=== PATIENT | female | born 1990 | race Caucasian/White ===

== ENCOUNTER → 2016-11-14 | Outpatient (REF) | payer OTHER | LOC: M LAB REF 10:30 | PROVIDERS: ATTEND Obstetrics & Gynecology | DX: Z12.4 Encounter for screening for malignant neoplasm of cervix (principal) ==

== ENCOUNTER → 2017-03-15 | Outpatient (CLI) | payer OTHER ==
--- NOTE | 2017-03-15 11:23 | REP ---
Clinical: Anatomical evaluation. Comparison: None . Findings: Examination demonstrates a single live intrauterine in cephalic presentation. motion is identified by technologist. Placenta is noted posteriorly and grade zero without evidence for placenta previa or abruption. Amniotic fluid volume is normal. Cervix measures 3.7 cm in length and appears closed. No evidence for nuchal cord. Gestational age by LMP 18 weeks 4 days with LUBA 08/12/2017 . Gestational age by current measurements 18 weeks 1 day with LUBA 08/15/2017 . FHR equals 149 beats per minute. BPD 4.0 cm 18 weeks 1 day HC 14.8 cm 17-week 6 days AC 12.5 cm 18 weeks 1 day FL 2.8 cm 18 weeks 4 days HL 2.6 cm 18 weeks 2 days HC/AC ratio 1.18 Estimated weight 233 grams ( 35th percentile). Anatomical assessment demonstrates normal structures including cranium, choroid plexus, cavum, cerebellum/posterior fossa, facial features, lungs, four-chamber heart/ventricular outflow tracts, diaphragm, stomach, cord insertion/three-vessel cord, kidneys/bladder, spine, and extremities. Impression: Single live intrauterine in cephalic presentation demonstrating appropriate interval growth. Anatomical assessment is complete and normal. No gross abnormalities are identified. Signed by Beck Monreal MD 03/15/2017 11:14 A
== END ==
LOC: M RAD 09:25
PROVIDERS: ATTEND Specialist
DX: Z34.82 Encounter for supervision of other normal pregnancy, second trimester (principal)

== ENCOUNTER → 2017-07-12 | Outpatient (REF) | payer OTHER | LOC: M LAB REF 17:12 | DX: Z34.83 Encounter for supervision of other normal pregnancy, third trimester (principal) ==

== ENCOUNTER 2017-08-05 16:46 | Inpatient (IN) | payer OTHER ==
[2017-08-05] MEDS: LR 1,000 ML IV (18:23)
[2017-08-05] MEDS: LACTATED RINGER'S 1000 ML IV (19:11)
[2017-08-05 19:28] LABS: HEMATOCRIT 36.9 % (36.0-47.0); HEMOGLOBIN 13.1 g/dl (12.0-15.5); MEAN CORPUSCULAR HEMOGLOBIN 33.1 pg (27.0-33.0); MEAN CORPUSCULAR HGB CONC 35.5 g/dl (32.0-36.5); MEAN CORPUSCULAR VOLUME 93.2 fl (80.0-96.0); PLATELET COUNT, AUTOMATED 241 10^3/uL (150-450); RED BLOOD COUNT 3.96 10^6/uL (4.00-5.40); RED CELL DISTRIBUTION WIDTH 11.9 % (11.5-14.5); WHITE BLOOD COUNT 14.7 10^3/uL (4.0-10.0)
[2017-08-05] MEDS: OXYTOCIN DRIP 30 UNITS in APPROPRIATE DILUENT 1 EA IV (19:58)
[2017-08-05] MEDS ORDERED: FENTANYL 2MCG/ML ROPIVACAINE 0.2% IN 0.9% NACL 200ML IVBAG As Ordered (21:06)
[2017-08-05] MEDS ORDERED: EPIDURAL/PCA KEYS XX (22:30)
[2017-08-05] MEDS ORDERED: REFRIGERATOR IV KEYS XX (22:30)
[2017-08-05] MEDS ORDERED: ONDANSETRON 4MG/2ML VIAL (J2405) IV (22:30)
[2017-08-05] MEDS ORDERED: EPIDURAL COMMENT XX (22:30)
[2017-08-05] MEDS ORDERED: diphenhydrAMINE INJ 50MG/ML VIAL (J1200) IV (22:30)
[2017-08-05] MEDS ORDERED: LACTATED RINGER'S 1000 ML IV (22:30)
[2017-08-05] MEDS ORDERED: FENTANYL/ROPIVACAINE/NACL BAG 200 ML EPIDURAL (22:30)
[2017-08-05] MEDS ORDERED: NALOXONE INJ 0.4 MG/1 ML VIAL (J2310) IV (22:30)
[2017-08-06] MEDS: ePHEDrine SULFATE 25 MG/5 ML(5MG/ML) SYRINGE IV (01:13)
[2017-08-06] MEDS: OXYTOCIN DRIP 30 UNITS in APPROPRIATE DILUENT 1 EA IV (07:36)
[2017-08-06] MEDS ORDERED: LR 1,000 ML IV (07:36)
[2017-08-06] MEDS ORDERED: ONDANSETRON 4MG/2ML VIAL (J2405) IV (07:45)
[2017-08-06] MEDS ORDERED: PROMETHAZINE 25 MG TAB PO (07:45)
[2017-08-06] MEDS ORDERED: DIBUCAINE 1% OINTMENT 30GM TOP (07:45)
[2017-08-06] MEDS: PRENATAL VITAMINS CHEWABLE TABLET PO (08:45)
[2017-08-06] MEDS: IBUPROFEN 800 MG TAB PO ×2 (08:45→16:57)
[2017-08-06] MEDS: DOCUSATE SODIUM 100 MG CAP PO (20:58)
[2017-08-06] MEDS: ACETAMINOPHEN 500 MG TAB PO (20:59)
[2017-08-07] MEDS: IBUPROFEN 800 MG TAB PO ×3 (04:53→22:27)
[2017-08-07] MEDS: PRENATAL VITAMINS CHEWABLE TABLET PO (09:13)
[2017-08-07] MEDS: RHOGAM 300 MCG (1500 IU) INJ (J2790) IM (19:03)
[2017-08-07] MEDS: MEASLES,MUMPS,RUBELLA VACCINE INJ (MMR-II) (90707) SC (19:03)
[2017-08-08] MEDS: PRENATAL VITAMINS CHEWABLE TABLET PO (08:10)
[2017-08-08] MEDS: IBUPROFEN 800 MG TAB PO (08:10)
== END 2017-08-08 14:00 | disposition home or self-care (01) | DRG 775 ==
LOC: M LDO 16:46 → M OBS 08-06 10:15 → M LDI 18:26
PROVIDERS: Obstetrics & Gynecology
PROC: 10E0XZZ Delivery of Products of Conception, External Approach (ICD-10-PCS; principal; 2017-08-06)
DX: O70.0 First degree perineal laceration during delivery (principal); Z37.0 Single live birth; Z3A.39 39 weeks gestation of pregnancy

== ENCOUNTER → 2019-01-29 | Outpatient (CLI) | payer OTHER ==
[~2019-01-29] MED LIST: IBUP-1114 PO; MAPA500T2 PO; PRENTAB9 PO; ZANT150T40 PO
[2019-01-29 17:55] LABS: BASO # 0.1 10^3/uL (0.0-0.2); BASO % 0.5 % (0.0-1.0); EOS # 0.1 10^3/uL (0.0-0.5); EOS % 1.4 % (0.0-3.0); HEMATOCRIT 36.4 % (36.0-47.0); HEMOGLOBIN 12.7 g/dl (12.0-15.5); LYMPH # 2.4 10^3/uL (1.5-5.0); LYMPH % 24.6 % (24.0-44.0); MEAN CORPUSCULAR HEMOGLOBIN 33.2 pg (27.0-33.0); MEAN CORPUSCULAR HGB CONC 34.9 g/dl (32.0-36.5); MEAN CORPUSCULAR VOLUME 95.3 fl (80.0-96.0); MONO # 0.7 10^3/uL (0.0-0.8); MONO % 6.7 % (0.0-5.0); NEUTROPHILS # 6.4 10^3/uL (1.5-8.5); NEUTROPHILS % 66.4 % (36.0-66.0); PLATELET COUNT, AUTOMATED 239 10^3/uL (150-450); RED BLOOD COUNT 3.82 10^6/uL (4.00-5.40); WHITE BLOOD COUNT 9.7 10^3/uL (4.0-10.0)
[2019-01-29 20:31] LABS: CHLAMYDIA DNA AMPLIFICATION NEGATIVE (NEGATIVE); GC DNA AMPLIFICATION NEGATIVE (NEGATIVE)
[2019-01-30 09:08] LABS: HEPATITIS C VIRUS ABY INDEX 0.1 INDEX (<0.8); HIV 1&2 SCREEN CENTAUR NEGATIVE (NEGATIVE); RUBELLA IgG QUALITATIVE IMMUNE (IMMUNE)
== END ==
LOC: M SMT 14:33
PROVIDERS: ATTEND Obstetrics & Gynecology
DX: Z34.81 Encounter for supervision of other normal pregnancy, first trimester (principal); Z3A.00 Weeks of gestation of pregnancy not specified

== ENCOUNTER → 2019-04-09 | Outpatient (CLI) | payer OTHER ==
--- NOTE | 2019-04-09 12:30 | REP ---
OBSTETRIC SONOGRAPHY: HISTORY: Supervision of for anatomy. FINDINGS: Scanning through the gravid uterus demonstrates a viable single intrauterine gestation in a transverse head to the maternal left lie. motion is observed and heart rate is recorded at 137 beats per minute. A posterior grade 0 placenta is seen without evidence of previa or abruption. Amniotic fluid is subjectively normal. Closed cervical length is 4.5 cm. No extrauterine abnormality is observed. No anomaly is seen. The ventricular cardiac outflow tract views and the spine are less than optimally seen due to position. The following additional anatomic structures are identified today and felt to be unremarkable: cranium, choroid plexus, cavum, cerebellum posterior fossa, face and profile, lungs, four-chamber heart, diaphragm, left-sided stomach, abdominal wall cord insertion, three-vessel umbilical cord, kidneys and bladder, spine, upper and lower extremities. Biometry Chart: BPD 4.0 cm = 18 weeks 1 day HC 14.5 cm = 17 weeks 5 days AC 12.5 cm = 18 weeks 1 day FL 2.7 cm = 18 weeks 2 days HL 2.6 cm = 18 weeks 0 days HC/AC ratio normal 1.16. Cephalic index normal 0.78. Estimated weight 225 grams, 0 pounds 7 ounces, 36 percentile for 18 weeks 3 days. IMPRESSION: Viable single intrauterine gestation at 18 weeks 0 days by today's composite sonographic criteria. LUBA by today's sonography September 10, 2019. Transverse lie. cardiac outflow tract views and spine visualization are less than optimal due to position. Electronically Signed by John Beard MD 04/09/2019 03:30 P
== END ==
LOC: M RAD 09:22
PROVIDERS: ATTEND Obstetrics & Gynecology
DX: Z34.90 Encounter for supervision of normal pregnancy, unspecified, unspecified trimester (principal); Z3A.18 18 weeks gestation of pregnancy

== ENCOUNTER → 2019-05-13 | Outpatient (CLI) | payer BC ==
--- NOTE | 2019-05-14 01:54 | REP ---
Clinical: Anatomical evaluation. Comparison: 04/09/2019 . Findings: Examination demonstrates a single live intrauterine in breech presentation. motion is identified by technologist. Placenta is noted posterior and grade air I without evidence for placenta previa or abruption. Amniotic fluid volume is normal. Cervix measures 3.6 cm in length and appears closed. No evidence for nuchal cord. Gestational age by LMP 23 weeks 2 days with LUBA 09/07/2019 . Gestational age by current measurements 22 weeks 2 days with LUBA 09/14/2019 . Estimated weight 572 grams ( 43rd percentile). Anatomical assessment demonstrates normal structures including four-chamber heart/ventricular outflow tracts and spine. Impression: single live intrauterine in breech presentation demonstrating appropriate interval growth. In conjunction with prior examination anatomical assessment is complete and normal.
== END ==
LOC: M WHC 14:01
PROVIDERS: ATTEND Obstetrics & Gynecology
DX: Z34.90 Encounter for supervision of normal pregnancy, unspecified, unspecified trimester (principal); Z3A.23 23 weeks gestation of pregnancy

== ENCOUNTER → 2019-06-12 | Outpatient (CLI) | payer BC ==
[2019-06-12 14:06] LABS: HEMATOCRIT 36.3 % (36.0-47.0); HEMOGLOBIN 12.6 g/dl (12.0-15.5); MEAN CORPUSCULAR HEMOGLOBIN 33.3 pg (27.0-33.0); MEAN CORPUSCULAR HGB CONC 34.7 g/dl (32.0-36.5); PLATELET COUNT, AUTOMATED 224 10^3/uL (150-450); RED BLOOD COUNT 3.78 10^6/uL (4.00-5.40); WHITE BLOOD COUNT 12.4 10^3/uL (4.0-10.0)
== END ==
LOC: M PLALAB 11:21
PROVIDERS: ATTEND Advanced Practice Midwife
DX: Z34.82 Encounter for supervision of other normal pregnancy, second trimester (principal); Z3A.00 Weeks of gestation of pregnancy not specified

== ENCOUNTER → 2019-08-05 | Outpatient (REF) | payer BC | LOC: M SFHCWAGY 13:14 | PROVIDERS: ATTEND Advanced Practice Midwife | DX: Z34.92 Encounter for supervision of normal pregnancy, unspecified, second trimester (principal); Z3A.00 Weeks of gestation of pregnancy not specified ==

== ENCOUNTER → 2019-08-19 | Outpatient (CLI) | payer BC | LOC: M LABSMTC 13:26 | PROVIDERS: ATTEND Family Medicine | DX: Z11.59 Encounter for screening for other viral diseases (principal) ==

== ENCOUNTER 2019-09-02 03:40 | Inpatient (IN) | payer BC ==
[~2019-09-02] VITALS: Ht 177.8 cm; Wt 91.7 kg
[2019-09-02] VITALS (7 sets, daily range): BP systolic 114–126; BP diastolic 57–71
[2019-09-02 04:18] LABS: HEMATOCRIT 36.3 % (36.0-47.0); HEMOGLOBIN 12.6 g/dl (12.0-15.5); MEAN CORPUSCULAR HGB CONC 34.7 g/dl (32.0-36.5); MEAN CORPUSCULAR VOLUME 92.1 fl (80.0-96.0); PLATELET COUNT, AUTOMATED 239 10^3/uL (150-450); RED BLOOD COUNT 3.94 10^6/uL (4.00-5.40); WHITE BLOOD COUNT 13.8 10^3/uL (4.0-10.0)
[2019-09-02] MEDS ORDERED: OXYTOCIN 30 UNITS IN 0.9% NaCl 500ML IV BAG (J2590) As Ordered ONE (04:46)
--- NOTE | 2019-09-02 06:21 | HPEPDOC ---
Obstetrical History & Physical General Date of Admission September 02, 2019 at 04:09 History of Present Illness 28-year-old 2, para 1 who presents at 39 weeks 2 days estimated gestational age by last menstrual period confirmatory first trimester, with complaints of contractions. Her course has been unremarkable. She i nitiated care first trimesters been appropriate throughout Chief Complaint: Contractions, term Information Provided By: Patient Age: 28 : 2 Livin Care Care: Good Care Dating Final EDC: September 07, 2019 Final EDC by: LMP LMP: Dec 01, 2018 Past Medical History Past Obstetrical History : Past Obstetrical History: Multigravida Type of Delivery: Spontaneous Vaginal Del. Sex of : Female Complications: No [employer] History: No pertinent history Past Medical History Surgical History: Denies/None Family History Significant Family History: Diabetes, Heart disease, Hypertension Social History Marital Status: Psychosocial History: No pertinent psych hx * Smoker: non-smoker Alcohol: Denies Drugs: denies Allergies Coded Allergies: No Known Allergies (Unverified , 08/05/17) Medications Scheduled No.137/Iron/Folic Acd ( Vitamin Tablet) 1 Tab Tab, 1 TAB PO DAILY Scheduled PRN Acetaminophen (Mapap) 500 Mg Tab, 1,000 MG PO Q6HP PRN for PAIN Ibuprofen (Ibuprofen) 400 Mg Tab, 800 MG PO Q8HP PRN for PAIN Physical Examination Physical Examination GENERAL: Alert and oriented times three. BREAST: . ABDOMEN: Gravid and non-tender to touch. FETUS: Is vertex (VTX) by sterile vaginal examination (SVE), fetus is vertex (VTX) by [place]. Vital Signs/I&O Vital Signs Date Time Temp Pulse Resp B/P (MAP) Pulse Ox O2 Delivery O2 Flow Rate FiO2 09/02/19 04:36 98.7 09/02/19 03:57 129 126/68 (87) Laboratory Data [facility] Laboratory Tests 2 09/02/19 04:00: Nucleated Red Blood Cells % (auto) 0.0 09/02/19 04:12: Serology Scanned Report Hepatitis B Testing CBC/BMP Laboratory Tests 09/02/19 04:00 Pertinent Laboratoy Data Blood Type: O+ RBC Antibody Screen: Negative HIV: Negative Hepatitis B: Negative Hepatitis C: Negative Rapid Plasma Reagin: Nonreactive Rubella: Immune Chlamydia/Gonorrhea: Negative Group B Streptococcus: Negative Anatomy Ultrasound Placenta Location: Posterior Normal Anatomy: Yes Vaginal Examination Dilation: 7 cm Effacement: 90% Station: 0 Cervical Consistency: Soft Cervical Position: Anterior Presentation: Cephalic presentation Assessment Heart Rate (FHR): 120 Variability: Moderate Accelerations: Positive Tocometer Frequency: regular Assessment/Plan Assessment 28-year-old 2, para 1 at 39w2d in active labor. Reassuring status. Admit to labor and delivery, CBC, RPR, type and screen Anticipate spontaneous vaginal delivery Plan Admit and orient. Client Strategist and consent. Diet: Regular. Group B Streptococcus (GBS) negative. Labs and intravenous (IV) per unit protocol. Anticipate normal spontaneous delivery (). C-S as appropriate. LUZ RAYGOZA MD. September 02, 2019 06:21
[2019-09-02] MEDS ORDERED: OXYTOCIN DRIP 30 UNITS in IV 1 EA IV SCH (06:34)
--- NOTE | 2019-09-02 06:43 | DNPDOC ---
[facility] Delivery Note Delivery Note DATE OF DELIVERY: 09/02/2019 TIME OF :, 0515 GENDER:, Female. APGARS:, 8 and 8. WEIGHT: 3410 grams or 7 pounds 10 ounces. LACERATIONS: None ANESTHESIA:. None. ESTIMATED BLOOD LOSS: 300ml COUNTS: 5 laparotomy sponges accounted for prior to after delivery. COMPLICATIONS: Retained placenta with the manual removal of placenta DELIVERY NOTE:. 09/02/2019 at 0515, Mrs. Berry a 28-year-old 2 now para 2, had a spontaneous vaginal delivery of viable female , Apgars, 8 and 8. Weight was 3410 g or 7 lbs. 10 oz. Head was delivered [occiput anterior (OA). Nuchal cord was manually reduced followed by delivery of the shoulders and corpus. was handed to mom with a good cry. Cord was clamped times two and was cut by the father of baby under my direction. Placenta was then draine d. There was attempted to deliver the placenta, which was unsuccessful. After approximately 30 minutes. Placenta appeared to be retained and a manual extraction was performed. On inspection, the placenta was grossly intact. A 10 mLs of Pitocin IM was given, as well as a bpremixed bag of 500 mL of normal saline with 30 units of Pitocin was then bolused along with uterine massage unt il the uterus was firm. On inspection,. cervix, vagina, perineum was grossly intact and hemostatic. Mom and baby in recovery on stable condition. The couples decided to maintain the daughter, Dianne. LUZ RAYGOZA MD. September 02, 2019 06:43
[2019-09-02] MEDS ORDERED: IBUPROFEN 600 MG TAB PO PRN (06:45)
[2019-09-02] MEDS ORDERED: AMPICILLIN SOD/SULBACTAM SOD 3 GM in D5W MINI-BAG PLUS 100 ML IV ONE (06:45)
[2019-09-02] MEDS ORDERED: DIBUCAINE 1% OINTMENT 30GM TOP PRN (06:45)
[2019-09-02] MEDS ORDERED: METHYLERGONOVINE MALEATE 0.2 MG TAB PO PRN (06:45)
[2019-09-02] MEDS ORDERED: OXYTOCIN INJ 10 UNITS/ML VIAL (J2590) IM ONE (06:45)
[2019-09-02] MEDS ORDERED: ACETAMINOPHEN TAB 650MG DOSE (2X325MG) PO PRN (06:45)
[2019-09-02] MEDS ORDERED: ANUSOL HC CREAM 30GM TOP PRN (06:45)
[2019-09-02] MEDS ORDERED: ACETAMINOPHEN 500 MG TAB PO PRN (06:45)
[2019-09-02] MEDS ORDERED: MEASLES,MUMPS,RUBELLA VACCINE INJ (MMR-II) (90707) SC SCH (06:45)
[2019-09-02] MEDS ORDERED: MOM 30ML SUSPENSION UDC PO PRN (06:45)
[2019-09-02] MEDS ORDERED: RHOGAM 300 MCG (1500 IU) INJ (J2790) IM SCH (06:45)
[2019-09-02] MEDS: IBUPROFEN 800 MG TAB PO PRN ×2 (06:56→15:29)
[2019-09-02] MEDS: PRENATAL VITAMINS CHEWABLE TABLET PO SCH (09:21)
[2019-09-02] MEDS: DOCUSATE SODIUM 100 MG CAP PO PRN (20:01)
[2019-09-03 06:00] VITALS: BP 106/61
[2019-09-03] MEDS: PRENATAL VITAMINS CHEWABLE TABLET PO SCH (08:44)
[2019-09-03] MEDS: IBUPROFEN 800 MG TAB PO PRN ×2 (08:44→18:57)
[2019-09-03 08:49] VITALS: BP 106/61
[2019-09-03 18:02] VITALS: BP 107/61
[2019-09-03] MEDS: DOCUSATE SODIUM 100 MG CAP PO PRN (21:11)
[2019-09-04] MEDS: IBUPROFEN 800 MG TAB PO PRN (06:11)
[2019-09-04 06:34] VITALS: BP 126/71
[2019-09-04] MEDS: PRENATAL VITAMINS CHEWABLE TABLET PO SCH (07:35)
== END 2019-09-04 11:25 | disposition home or self-care (01) | DRG 541 ==
LOC: M LDO 03:40 → M LDI 04:09 → M OBS 09:00
PROVIDERS: ADMIT Obstetrics & Gynecology; ATTEND Obstetrics & Gynecology
PROC: 10E0XZZ Delivery of Products of Conception, External Approach (ICD-10-PCS; principal; 2019-09-02)
PROC: 10D17Z9 Manual Extraction of Products of Conception, Retained, Via Natural or Artificial Opening (ICD-10-PCS; 2019-09-02)
DX: O73.1 Retained portions of placenta and membranes, without hemorrhage (principal); Z37.0 Single live birth; Z3A.39 39 weeks gestation of pregnancy

== ENCOUNTER → 2019-10-15 | Outpatient (REF) | payer BC ==
[2019-10-15 19:06] LABS: FREE T4 1.16 NG/DL (0.76-1.46); THYROID STIMULATING HORMONE 1.97 uIU/ML (0.358-3.740)
[2019-10-16 08:36] LABS: TOTAL 25(OH) VITAMIN D 40.9 NG/ML (30.0-100.0)
== END ==
LOC: M PLALAB 15:00
PROVIDERS: ATTEND Advanced Practice Midwife
DX: F53.0 Postpartum depression (principal)

== ENCOUNTER → 2019-10-16 | Outpatient (CLI) | payer BC ==
--- NOTE | 2019-10-17 00:56 | REP ---
REASON FOR EXAM: Assess for possible retained products of conception. Transvesical and transvaginal imaging was obtained. The uterus measures 8.9 x 4.4 x 6.3 cm. The parenchymal echo pattern is within normal limits. The endometrial echo complex is smooth and unremarkable appearing, measuring 3 mm in its greatest thickness. The right ovary measures 3 x 1.9 x 1.9 cm and is within normal limits. The left ovary measures 2.6 x 1.5 x 2.7 cm and is within normal limits. There is no free fluid in the cul-de-sac. Urinary bladder measures approximately 13 x 8 x 9 cm. IMPRESSION: Normal pelvic ultrasound.
== END ==
LOC: M WHC 16:04
PROVIDERS: ATTEND Advanced Practice Midwife
DX: O72.3 Postpartum coagulation defects (principal)

== ENCOUNTER → 2019-10-22 | Outpatient (RCR) | payer BC | END | disposition home or self-care (01) | LOC: M PT 14:15 | PROVIDERS: ATTEND Advanced Practice Midwife | DX: Z51.89 Encounter for other specified aftercare (principal); N81.2 Incomplete uterovaginal prolapse ==

== ENCOUNTER 2019-11-19 11:00 | Outpatient (RCR) | payer BC | END 2019-11-22 | LOC: M PT 11:00 | PROVIDERS: ATTEND Advanced Practice Midwife | DX: N81.2 Incomplete uterovaginal prolapse (principal) ==

== ENCOUNTER → 2019-11-28 | Outpatient (REF) | payer BC | LOC: M SFHCWAGY 09:56 | PROVIDERS: ATTEND Advanced Practice Midwife | DX: Z12.4 Encounter for screening for malignant neoplasm of cervix (principal) ==

== ENCOUNTER 2019-12-17 11:00 | Outpatient (RCR) | payer BC | END 2019-12-23 | LOC: M PT 11:00 | PROVIDERS: ATTEND Advanced Practice Midwife | DX: N81.2 Incomplete uterovaginal prolapse (principal) ==

== ENCOUNTER → 2021-06-10 | Outpatient (REF) | payer BC ==
[2021-06-10 19:13] LABS: GC DNA AMPLIFICATION NEGATIVE (NEGATIVE)
== END ==
LOC: M SFHCWAGY 16:46
PROVIDERS: ATTEND Advanced Practice Midwife
DX: Z11.3 Encounter for screening for infections with a predominantly sexual mode of transmission (principal)

== ENCOUNTER → 2022-08-17 | Outpatient (CLI) | payer BC | LOC: M PLALAB 14:49 | PROVIDERS: ATTEND Obstetrics & Gynecology | DX: R45.86 Emotional lability (principal); Z12.4 Encounter for screening for malignant neoplasm of cervix | CPT/HCPCS: 36415; 84443; 87624; G0123 ==

== ENCOUNTER → 2024-03-08 | Outpatient (REF) | payer BC | LOC: M PLALAB 14:09 | PROVIDERS: ATTEND Advanced Practice Midwife | DX: R10.2 Pelvic and perineal pain (principal) ==

== ENCOUNTER → 2024-03-12 | Outpatient (CLI) | payer BC | LOC: M RAD 14:30 | PROVIDERS: ATTEND Advanced Practice Midwife | DX: R10.2 Pelvic and perineal pain (principal); Z30.431 Encounter for routine checking of intrauterine contraceptive device ==